=== PATIENT | male | born 1980 | race Caucasian/White ===

== ENCOUNTER 2016-07-02 19:50 | Emergency (ER) | payer OTHER ==
[~2016-07-02] VITALS: Ht 168.9 cm; Wt 80.7 kg
[~2016-07-02 19:50] MED LIST: AMOXICILLIN500 MG PO; ASPIR 8181 MG PO; KEFLEX500 MG PO; LOTRISONE CREAM15 GM TOP
[2016-07-02 20:31] VITALS: BP 134/76
--- NOTE | 2016-07-02 22:49 | ED THROAT/DENTAL COMPLAINT ---
History of Present Illness General Chief Complaint: Sore Throat, Dental Pain Stated Complaint: LUMP INSIDE MOUTH,SWOLLEN CHEECK,EAR PRESSURE Source: patient, old records Exam Limitations: no limitations Vital Signs & Intake/Output Vital Signs & Intake/Output Vital Signs Date Time Temp Pulse Resp B/P B/P Pulse O2 O2 Flow FiO2 Mean Ox Delivery Rate 07/02 2212 98.2 07/02 2212 Room Air 07/02 2030 99.4 87 20 134/76 97 Room Air Allergies Coded Allergies: codeine (Intermediate, HIVES 07/02/16) Reconcile Medications Amoxicillin 500 MG CAPSULE 1 TAB PO BID STREP Cephalexin (Keflex) 500 MG CAP 1 TAB PO TID CELLULITIS Lotrisone (Lotrisone Cream) 15 GM CRM 1 JUNITO TOP QAMPM TINEA apply to affected area(s) Triage Note: TRIAGE: PT TO ER C/C LUMP AND PAIN TO L SIDE OF MOUTH AT GUMLINE. PAIN RADIATES TO L EAR. ONSET THIS MORNING. CONSTANT AND WORSENING SINCE ONSET. STATES HX OF BROKEN TOOTH TO SAME AREA FOR "A LONG TIME". Triage Nurses Notes Reviewed? yes HPI: Patient presents for evaluation of a lump in the left upper gum along with facial swelling that began gradually beginning this morning. Patient is having a severe constant aching pain associated with this that gets worse with trying to eat. He states he has a broken tooth in the same area as the gum swelling. He denies any associated fever. Past History Travel History Traveled to [place] past 21 day No Medical History Any Pertinent Medical History? 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 No Review of Systems Review of Systems Constitutional: Reports: no symptoms. EENTM: Reports: see HPI. Respiratory: Reports: no symptoms. Cardiovascular: Reports: no symptoms. GI: Reports: no symptoms. Genitourinary: Reports: no symptoms. Musculoskeletal: Reports: no symptoms. Skin: Reports: no symptoms. Neurological/Psychological: Reports: no symptoms. Hematologic/Endocrine: Reports: no symptoms. Immunologic/Allergic: Reports: no symptoms. All Other Systems: Reviewed and Negative Physical Exam Physical Exam Mouth/Throat: SEE BELOW Comments: Gen.: Well-nourished, well-developed, no acute respiratory distress. Head: Normocephalic, atraumatic. Eyes: Normal inspection bilaterally Ears: Normal inspection bilaterally Nose: Normal inspection Throat/mouth : Moist mucosa , heavily decayed tooth reduced to a "stump" of the left upper row with associated gingivitis Face: Mild soft tissue swelling over the left frontal sinus. Neck: Supple, full range of motion, no goiter Lungs: Quiet respirations Back: Normal range of motion Extremities: Normal range of motion grossly, no cyanosis Neurologic: Cranial nerves grossly intact, speech is clear Skin: warm and dry Psychiatric: Calm, cooperative, no apparent delusions or hallucinations Core Measures ACS in differential dx? No Severe Sepsis Present: No Septic Shock Present: No Progress Differential Diagnosis: odontogenic abscess, SINUSITIS Plan of Care: Penicillin, pain control, follow up dentist Departure Departure Disposition: HOME OR SELF CARE Condition: Stable Clinical Impression Primary Impression: Dental abscess Referrals: PATIENT HAS NO PRIMARY CARE DR (PCP/Family) Additional Instructions: Pen-Vee as prescribed. Ibuprofen as prescribed as needed for pain. Add tramadol if necessary. Follow-up with a dentist as soon as possible. Return if any concerns or sudden worsening. Departure Forms: Customer Survey General Discharge Information Prescriptions: Current Visit Scripts Penicillin V Potassium 1 TAB PO Q6 #28 TAB Ibuprofen 1 TAB PO Q6P PRN PAIN #28 TAB with food Tramadol HCl (Ultram) 1 TAB PO Q6P PRN PAIN #12 TAB
[2016-07-02] MEDS ORDERED: PENICILLIN V P500 M1 PO (23:04)
[2016-07-02] MEDS ORDERED: IBUPROFEN600 M1 PO (23:04)
[2016-07-02] MEDS ORDERED: ULTRAM50 M1 PO (23:04)
[2016-07-02] MEDS ORDERED: NORCO 5-325 TA1 EACH PO (23:35)
== END 2016-07-02 23:14 ==
LOC: ERH 19:50
DX: K04.7 Periapical abscess without sinus (principal)